=== PATIENT | female | born 1995 | race Caucasian/White ===

== ENCOUNTER 2022-01-04 17:26 | Emergency (ER) | payer OTHER ==
[2022-01-04 17:32] VITALS: BP 136/94; PULSE 119; RESP 18; TEMP 98.5; BMI 41.1
[2022-01-04] MEDS ORDERED: PHENAZOPYRIDINE HCL 100 MG TABLET (FP) PO ONE (17:55)
[2022-01-04] MEDS ORDERED: PHENAZOPYRIDINE HCL 100 MG TABLET (FP) ONE (18:20)
[2022-01-04 19:26] LABS: BASO % 0.9 % (0-2.0); EOS % 0.4 % (0-4.5); HEMATOCRIT 42.7 % (32.4-45.2); HEMOGLOBIN 14.6 GM/dL (10.7-15.3); MCH 28.2 pg (25.7-33.7); MCHC 34.2 g/dl (32.0-36.0); MEAN CELL VOLUME 82.3 fl (80-96); MEAN PLT VOLUME 8.3 fl (7.5-11.1); MONO % 7.4 % (3.8-10.2); NEUT % 79.3 % (42.8-82.8); PLATELET COUNT 311 10^3/uL (134-434); RBC 5.18 M/mm3 (3.60-5.2); RDW 15.4 % (11.6-15.6); WHITE BLOOD COUNT 10.1 K/mm3 (4.0-10.0)
[2022-01-04 19:27] LABS: EPI CELLS 7 /uL (0-25.1); HYALINE CASTS 0 /uL (0-3.1); PH,URINE 5.5 (5.0-8.0); URINE APPEARANCE CLEAR; URINE BACTERIA 183 /uL (0-1359); URINE BILIRUBIN NEGATIVE (NEGATIVE); URINE COLOR YELLOW; URINE GLUCOSE (UA) NEGATIVE (NEGATIVE); URINE KETONE NEGATIVE (NEGATIVE); URINE LEUK ESTERASE 1+ (NEGATIVE); URINE NITRITE NEGATIVE (NEGATIVE); URINE PROTEIN NEGATIVE (NEGATIVE); URINE RBC 82 /uL (0-23.9); URINE UROBILINOGEN 0.2 mg/dL (0.2-1.0); URINE WBC 105 /uL (0-25.8)
[2022-01-04 19:46] LABS: CALCIUM 9.5 mg/dL (8.5-10.1)
[2022-01-04 19:47] LABS: ALBUMIN 3.6 g/dl (3.4-5.0)
[2022-01-04 19:50] LABS: CREATININE 0.9 mg/dL (0.55-1.3); HCG,QUALITATIVE URINE Negative
[2022-01-04 19:51] LABS: TOT PROT 8.1 g/dl (6.4-8.2)
[2022-01-04 19:52] LABS: BILIRUBIN,TOTAL 0.2 mg/dL (0.2-1)
== END 2022-01-04 19:56 | disposition home or self-care (01) ==
LOC: JERFT 17:26
DX: R30.0 Dysuria (principal); N30.01 Acute cystitis with hematuria
CPT/HCPCS: 36415; 80053; 81003; 84703; 85025; 87086; 99283-25